=== PATIENT | male | born 1995 | race Caucasian/White ===

== ENCOUNTER 2021-03-12 14:07 | Emergency (ER) | payer OTHER ==
[~2021-03-12] VITALS: Ht 188 cm; Wt 122.8 kg
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
[2021-03-12 15:34] VITALS: BP 129/81
== END 2021-03-12 15:38 | disposition home or self-care (01) ==
LOC: M ED 14:07
DX: S16.1XXA Strain of muscle, fascia and tendon at neck level, initial encounter (principal); V49.49XA Driver injured in collision with other motor vehicles in traffic accident, initial encounter; Y92.410 Unspecified street and highway as the place of occurrence of the external cause; F17.210 Nicotine dependence, cigarettes, uncomplicated